=== PATIENT | female | born 1950 | race Caucasian/White ===

== ENCOUNTER 2021-01-01 16:31 | Emergency (ER) | payer MEDICARE ==
[~2021-01-01 16:31] MED LIST: ANTIVERT25 MG PO; ASPIR 8181 MG PO; BENTYL10 MG PO; CERTAGEN1 EACH PO; CIPRO500 MG PO; COLACE100 MG PO; CYCLOBENZAPRINE10 MG PO; ETODOLAC500 MG PO; IBUPROFEN800 MG PO; KEFLEX250 MG PO; LIDOCAINE 5% P1 EACH TOP; MIRALAX17 GM PO; NAPROXEN500 MG PO; NORCO 5-325 TA1 EACH PO; PEPCID AC20 MG PO; PERCOCET 5-3251 EACH PO; PYRIDIUM200 MG PO; ROBAXIN750 MG PO; TRAZODONE 50MG50 MG PO; ULTRAM50 MG PO; VOLTAREN **OUT75 MG PO; ZOFRAN8 MG PO; ZOLOFT100 MG PO
[2021-01-01 18:30] LABS: BASOPHIL 0.9 % (0-2); EOSINOPHIL 3.3 % (0-7); HGB 12.7 g/dl (12.5-16.0); LYMPHOCYTE 31.8 % (15-48); MCHC 32.6 g/dL (32.0-36.0); MCV 85.9 fL (78.0-100.0); MONOCYTE 11.7 % (0-12); MPV 9.5 fL (6.0-9.5); NEUTROPHIL 51.9 % (41-80); NRBC 0; PLT 198 K/uL (150-400); RBC 4.54 M/uL (4.20-5.40); RDW 13.4 % (11.5-14.0); WBC 7.6 K/uL (4.0-10.5)
[2021-01-01 18:50] LABS: ALBUMIN 3.6 g/dL (3.4-5.0); BILIRUBIN - TOTAL 0.4 mg/dL (0.2-1.0); BUN/CREAT RATIO (CALC) 19.1 RATIO; CREATININE 0.89 mg/dL (0.51-0.95); GLOBULIN (CALCULATION) 4.4 g/dL; POTASSIUM 4.2 mmol/L (3.5-5.1)
[2021-01-01] MEDS ORDERED: ANTIVERT25 MG PO (22:43)
[2021-01-01] MEDS ORDERED: ZOFRAN4 M1 PO (22:43)
== END 2021-01-01 23:00 | disposition home or self-care (01) ==
LOC: FER 16:31
PROVIDERS: Emergency Medicine
DX: R42 Dizziness and giddiness (principal); J44.9 Chronic obstructive pulmonary disease, unspecified; Z88.5 Allergy status to narcotic agent; Z88.8 Allergy status to other drugs, medicaments and biological substances; Z87.09 Personal history of other diseases of the respiratory system
CPT/HCPCS: 36415; 70450; 71046; 80053; 84484; 85025; 93005

== ENCOUNTER 2021-06-20 12:52 | Emergency (ER) | payer MEDICARE ==
[~2021-06-20 12:52] MED LIST changes: +ZOFRAN4 M1 PO
[2021-06-20] MEDS ORDERED: CYCLOBENZAPRINE10 MG PO (14:00)
[2021-06-20] MEDS ORDERED: NORCO 5-325 TA1 EACH PO (14:00)
[2021-06-20] MEDS ORDERED: MEDROL 4MG DOSEP4 MG PO (14:00)
== END 2021-06-20 14:25 | disposition home or self-care (01) ==
LOC: FER 12:52
DX: M54.32 Sciatica, left side (principal)
CPT/HCPCS: 99283; J1100; J1885

== ENCOUNTER 2021-07-28 12:24 | Emergency (ER) | payer MEDICARE ==
[~2021-07-28 12:24] MED LIST changes: +MEDROL 4MG DOSEP4 MG PO
[2021-07-28 14:59] LABS: CORONAVIRUS 2019 SARS-COV-2 NEGATIVE (NEGATIVE); INFLUENZA A NAA NEGATIVE (NEGATIVE)
[2021-07-28] MEDS ORDERED: MEDROL 4MG DOSEP4 MG PO (18:06)
[2021-07-28] MEDS ORDERED: TESSALON PERLE100 MG PO (18:06)
[2021-07-28] MEDS ORDERED: VENTOLIN HFA IN18 GM INH (18:06)
== END 2021-07-28 18:24 | disposition home or self-care (01) ==
LOC: FER 12:24
PROVIDERS: Emergency Medicine
DX: J40 Bronchitis, not specified as acute or chronic (principal); Z20.822 Contact with and (suspected) exposure to COVID-19
CPT/HCPCS: 94640; 94664; 99283; J1100; U0002

== ENCOUNTER 2021-11-09 16:22 | Emergency (ER) | payer MEDICARE ==
[~2021-11-09 16:22] MED LIST changes: +FLEXERIL5 MG PO; +NAPROSYN375 MG PO; +TESSALON PERLE100 MG PO; +VENTOLIN HFA IN18 GM INH
== END 2021-11-09 17:48 | disposition home or self-care (01) ==
LOC: FER 16:22
DX: M25.532 Pain in left wrist (principal)
CPT/HCPCS: 73110

== ENCOUNTER 2021-11-18 23:14 | Inpatient (IN) | payer MEDICARE ==
[~2021-11-18] VITALS: Ht 152.4 cm; Wt 75.8 kg
[2021-11-18 23:52] LABS: BASOPHIL 0.5 % (0-2); EOSINOPHIL 0.3 % (0-7); HGB 10.5 g/dl (12.5-16.0); LYMPHOCYTE 11.6 % (15-48); MCH 23.6 pg (25.0-31.0); MCHC 30.9 g/dL (32.0-36.0); MCV 76.4 fL (78.0-100.0); MONOCYTE 7.5 % (0-12); MPV 9.4 fL (6.0-9.5); NEUTROPHIL 79.6 % (41-80); NRBC 0; PLT 281 K/uL (150-400); RBC 4.45 M/uL (4.20-5.40); RDW 15.8 % (11.5-14.0); WBC 9.2 K/uL (4.0-10.5)
[2021-11-19 00:22] LABS: LACTIC ACID 1.1 mmol/L (0.4-1.9)
[2021-11-19 00:29] LABS: ALBUMIN 3.3 g/dL (3.4-5.0); BILIRUBIN - TOTAL 0.3 mg/dL (0.2-1.0); BUN/CREAT RATIO (CALC) 13.4 RATIO; CREATININE 0.82 mg/dL (0.51-0.95); GLOBULIN (CALCULATION) 5.4 g/dL; TOTAL PROTEIN 8.7 g/dL (6.4-8.2)
[2021-11-19 00:49] LABS: BILIRUBIN NEGATIVE (NEGATIVE); BLOOD TRACE-INTACT Ery/uL (NEGATIVE); CLARITY CLEAR (CLEAR); COLOR YELLOW (YELLOW); GLUCOSE (U) NORMAL (NORMAL); LEUKOCYTES NEGATIVE Leu/uL (NEGATIVE); NITRITE POSITIVE (NEGATIVE); PROTEIN 1+ mg/dL (NEGATIVE); UROBILINOGEN 0.2 mg/dL (0.2-1.0)
[2021-11-19 00:55] LABS: BACTERIA 3+
[2021-11-19 03:47] LABS: CORONAVIRUS 2019 SARS-COV-2 NEGATIVE (NEGATIVE); INFLUENZA A NAA NEGATIVE (NEGATIVE)
[2021-11-19] MEDS ORDERED: PHENERGAN6.25 MG/5 PO (04:18)
[2021-11-19] MEDS ORDERED: ZINC50 MG PO (04:20)
[2021-11-19] MEDS ORDERED: CETIRIZINE HCL10 MG PO (04:20)
[2021-11-20 05:34] LABS: BASOPHIL 0.6 % (0-2); EOSINOPHIL 1.6 % (0-7); HCT 32.3 % (37.0-47.0); HGB 9.7 g/dl (12.5-16.0); LYMPHOCYTE 21.2 % (15-48); MCH 23.5 pg (25.0-31.0); MCV 78.4 fL (78.0-100.0); MONOCYTE 9.2 % (0-12); MPV 9.4 fL (6.0-9.5); NEUTROPHIL 66.9 % (41-80); NRBC 0; PLT 236 K/uL (150-400); RBC 4.12 M/uL (4.20-5.40); WBC 8.3 K/uL (4.0-10.5)
[2021-11-20 06:05] LABS: BUN/CREAT RATIO (CALC) 17.1 RATIO; CREATININE 0.76 mg/dL (0.51-0.95); POTASSIUM 3.5 mmol/L (3.5-5.1)
[2021-11-20 06:35] LABS: IRON % SATURATION 8.4 %SAT (20-50)
[2021-11-21 05:55] LABS: BASOPHIL 0.6 % (0-2); EOSINOPHIL 4.2 % (0-7); HCT 33.2 % (37.0-47.0); HGB 10.1 g/dl (12.5-16.0); LYMPHOCYTE 34.2 % (15-48); MCH 23.7 pg (25.0-31.0); MCHC 30.4 g/dL (32.0-36.0); MCV 77.8 fL (78.0-100.0); MONOCYTE 8.8 % (0-12); MPV 9.3 fL (6.0-9.5); NEUTROPHIL 51.6 % (41-80); NRBC 0; PLT 271 K/uL (150-400); RBC 4.27 M/uL (4.20-5.40); WBC 6.9 K/uL (4.0-10.5)
[2021-11-21 06:18] LABS: BUN/CREAT RATIO (CALC) 16.2 RATIO; CREATININE 0.74 mg/dL (0.51-0.95); POTASSIUM 3.8 mmol/L (3.5-5.1)
[2021-11-22 06:33] LABS: EOSINOPHIL 4.5 % (0-7); HCT 33.2 % (37.0-47.0); HGB 10.4 g/dl (12.5-16.0); LYMPHOCYTE 35.1 % (15-48); MCH 24.5 pg (25.0-31.0); MCHC 31.3 g/dL (32.0-36.0); MCV 78.1 fL (78.0-100.0); MONOCYTE 7.6 % (0-12); MPV 9.4 fL (6.0-9.5); NEUTROPHIL 50.5 % (41-80); NRBC 0; PLT 280 K/uL (150-400); RBC 4.25 M/uL (4.20-5.40); RDW 15.9 % (11.5-14.0); WBC 6.2 K/uL (4.0-10.5)
[2021-11-22 06:55] LABS: BUN/CREAT RATIO (CALC) 16.4 RATIO; CREATININE 0.73 mg/dL (0.51-0.95); POTASSIUM 3.7 mmol/L (3.5-5.1)
[2021-11-22] MEDS ORDERED: VIBRAMYCIN100 MG PO (08:00)
[2021-11-22] MEDS ORDERED: FLORANEX TABLE1 EACH PO (08:00)
== END 2021-11-22 11:07 | disposition home or self-care (01) | DRG 871 ==
LOC: FER 23:14 → FMS 11-19 03:15 → FTCU 11-19 03:15 → FMS 11-19 03:50 → FTCU 11-19 07:38 → FMS 11-20 11:14
PROVIDERS: Internal Medicine; ADMIT Family Medicine
PROC: 3E03329 Introduction of Other Anti-infective into Peripheral Vein, Percutaneous Approach (ICD-10-PCS; principal; 2021-11-19)
PROC: B24BZZ4 Ultrasonography of Heart with Aorta, Transesophageal (ICD-10-PCS; 2021-11-19)
DX: A41.51 Sepsis due to Escherichia coli [E. coli] (principal); G93.41 Metabolic encephalopathy; J96.01 Acute respiratory failure with hypoxia; J18.9 Pneumonia, unspecified organism; N17.9 Acute kidney failure, unspecified; N39.0 Urinary tract infection, site not specified; R65.20 Severe sepsis without septic shock; Z20.822 Contact with and (suspected) exposure to COVID-19; M54.30 Sciatica, unspecified side; R91.8 Other nonspecific abnormal finding of lung field; D50.9 Iron deficiency anemia, unspecified; R73.03 Prediabetes; E78.5 Hyperlipidemia, unspecified; F32.A Depression, unspecified; Z87.442 Personal history of urinary calculi; Z90.710 Acquired absence of both cervix and uterus; Z90.49 Acquired absence of other specified parts of digestive tract; Z98.890 Other specified postprocedural states; Z79.899 Other long term (current) drug therapy; Z86.018 Personal history of other benign neoplasm; Z87.440 Personal history of urinary (tract) infections
CPT/HCPCS: 36415; 70450; 71250; 71275; 80048; 80053; 81001; 83036; 83540; 83550; 83605; 83690; 83880; 84145; 84484; 85025; 85379; 87040; 87070; 87076; 87077; 87088; 87186; 87205; 93005; 94010; 94667; 94668; 97162; 97165; 97530-GP; 97535; J0696; J2543; J7030; J7040; Q9967; U0002

== ENCOUNTER 2021-12-11 11:51 | Emergency (ER) | payer MEDICARE ==
[~2021-12-11 11:51] MED LIST changes: +CETIRIZINE HCL10 MG PO; +FLORANEX TABLE1 EACH PO; +PHENERGAN6.25 MG/5 PO; +VIBRAMYCIN100 MG PO; +ZINC50 MG PO
[2021-12-11 12:37] LABS: BILIRUBIN NEGATIVE (NEGATIVE); BLOOD NEGATIVE Ery/uL (NEGATIVE); CLARITY CLEAR (CLEAR); COLOR YELLOW (YELLOW); GLUCOSE (U) NORMAL (NORMAL); LEUKOCYTES NEGATIVE Leu/uL (NEGATIVE); NITRITE NEGATIVE (NEGATIVE); PROTEIN 1+ mg/dL (NEGATIVE); SPECIFIC GRAVITY 1.015 (1.001-1.030); UROBILINOGEN 0.2 mg/dL (0.2-1.0); pH 6.5 (5.0-9.0)
[2021-12-11 12:45] LABS: BACTERIA TRACE; URINARY WBC RARE
[2021-12-11 13:07] LABS: BASOPHIL 0.6 % (0-2); EOSINOPHIL 2.2 % (0-7); HCT 38.7 % (37.0-47.0); HGB 11.9 g/dl (12.5-16.0); LYMPHOCYTE 21.9 % (15-48); MCH 24.2 pg (25.0-31.0); MCHC 30.7 g/dL (32.0-36.0); MCV 78.8 fL (78.0-100.0); MONOCYTE 9.9 % (0-12); MPV 9.4 fL (6.0-9.5); NEUTROPHIL 65.1 % (41-80); NRBC 0; PLT 275 K/uL (150-400); RBC 4.91 M/uL (4.20-5.40); RDW 16.3 % (11.5-14.0); WBC 6.5 K/uL (4.0-10.5)
[2021-12-11 13:18] LABS: INR 1.11 (0.9-1.2); PROTHROMBIN TIME 13.7 SECONDS (11.8-13.4)
[2021-12-11 13:34] LABS: ALBUMIN 3.4 g/dL (3.4-5.0); BILIRUBIN - TOTAL 0.3 mg/dL (0.2-1.0); CREATININE 0.75 mg/dL (0.51-0.95); GLOBULIN (CALCULATION) 5.5 g/dL; POTASSIUM 3.8 mmol/L (3.5-5.1); TOTAL PROTEIN 8.9 g/dL (6.4-8.2)
[2021-12-11 13:37] LABS: LACTIC ACID 1.6 mmol/L (0.4-1.9)
[2021-12-11] MEDS ORDERED: NAPROSYN250 MG PO (14:40)
[2021-12-11] MEDS ORDERED: CYCLOBENZAPRINE10 MG PO (14:40)
[2021-12-11] MEDS ORDERED: ONDANSETRON ODT4 MG PO (14:40)
[2021-12-11] MEDS ORDERED: COLACE100 MG PO (14:41)
[2021-12-11] MEDS ORDERED: MIRALAX17 GM PO (14:41)
== END 2021-12-11 14:49 | disposition home or self-care (01) ==
LOC: FER 11:51
PROVIDERS: Physician Assistant
DX: K59.00 Constipation, unspecified (principal); R10.9 Unspecified abdominal pain; R11.0 Nausea; E11.9 Type 2 diabetes mellitus without complications
CPT/HCPCS: 36415; 80053; 81001; 83605; 83690; 85025; 85610; J1885